=== PATIENT | male | born 1995 ===

== ENCOUNTER 2017-09-05 17:45 | Emergency (ER) | payer MEDICAID, OTHER ==
[2017-09-05 19:52] VITALS: BP 160/90; PULSE 96; RESP 18; TEMP 98.7; O2SAT 99
--- NOTE | 2017-09-05 20:26 | C.PDOC ---
History Of Present Illness 22 year old male presents to the ED for evaluation of cough which began 2 days ago. Patient had sick contact with mother, who has been experiencing similar symptoms. Patient denies fever, chills, vomiting, diarrhea. Time Seen by Provider: 09/05/17 19:44 Chief Complaint (Nursing): Cough, Cold, Congestion History Per: Patient History/Exam Limitations: no limitations Onset/Duration Of Symptoms: Days Current Symptoms Are (Timing): Still Present Location Of Pain: None Sick Contacts (Context): Family Member(s) (mother) Associated Symptoms: Cough. denies: Fever, Chills, Vomiting, Diarrhea Additional History Per: Patient, Family Past Medical History Reviewed: Historical Data, Nursing Documentation, Vital Signs Vital Signs: Last Vital Signs Temp 98.7 F 09/05/17 19:49 Pulse 96 H 09/05/17 19:49 Resp 18 09/05/17 19:49 BP 160/90 H 09/05/17 19:49 Pulse Ox 99 09/05/17 21:51 - Medical History PMH: HTN, Seizures Denies: Diabetes, Hepatitis, HIV, Sexually Transmitted Disease Surgical History: No Surg Hx - [facility] Procedures DEBRIDEMENT OF NAIL, NAIL BED OR NAIL FOLD (07/05/14) FAMILY THERAPY (07/05/14) INDIVID PSYCHOTHERAP NEC (07/05/14) INFLUENZA VACCINATION (07/05/14) MAGNETIC RESONANCE IMAGING OF BRAIN AND BRAIN STEM (05/17/14) OTHER GROUP THERAPY (07/05/14) PSYCHIA INTERV/EVAL NEC (07/01/14) Family History: States: Unknown Family Hx - Social History Hx Tobacco Use: No Hx Alcohol Use: No Hx Substance Use: No - Immunization History Hx Tetanus Toxoid Vaccination: No Hx Influenza Vaccination: No Hx Pneumococcal Vaccination: Yes Review Of Systems Constitutional: Negative for: Fever, Chills Respiratory: Positive for: Cough Gastrointestinal: Negative for: Vomiting, Abdominal Pain, Diarrhea Physical Exam - Physical Exam Appears: Non-toxic, No Acute Distress Skin: Normal Color, Warm, Dry, No Rash Head: Atraumatic, Normacephalic Eye(s): bilateral: Normal Inspection, PERRL, EOMI Ear(s): Bilateral: Normal Nose: Normal, No Discharge Oral Mucosa: Moist Throat: Normal, No Erythema, No Exudate Neck: Normal ROM, Supple Chest: Symmetrical, No Deformity, No Tenderness Cardiovascular: Rhythm Regular, No Friction Rub, No Murmur Respiratory: Normal Breath Sounds, No Rales, No Rhonchi, No Wheezing Gastrointestinal/Abdominal: Bowel Sounds (active), Soft, No Tenderness Back: Normal Inspection, No CVA Tenderness Extremity: Normal ROM, Capillary Refill (less than 2 seconds ) Neurological/Psych: Oriented x3, Normal Speech, Normal Cognition, Normal Motor, Normal Sensation Gait: Steady ED Course And Treatment O2 Sat by Pulse Oximetry: 99 (on RA) Pulse Ox Interpretation: Normal Medical Decision Making Medical Decision Making: Motrin PO administered. Disposition - Disposition Referrals: Husam Gray MD [Non-Staff] - Disposition: HOME/ ROUTINE Disposition Time: 20:24 Condition: GOOD Additional Instructions: Follow up with the medical doctor within 1-2 days. Return if worsened. Prescriptions: Ibuprofen [Motrin] 600 mg PO TID #21 tab Loratadine [Claritin] 10 mg PO DAILY #10 tab Instructions: Upper Respiratory Infection (ED) Forms: [employer] (Upper Sor[place]), School Excuse - Clinical Impression Clinical Impression: Upper respiratory infection - PA / [employer] / Resident Statement MD/DO has reviewed & agrees with the documentation as recorded. - Scribe Statement The provider has reviewed the documentation as recorded by the Scribe (Gaby Patel) All medical record entries made by the Scribe were at my direction and personally dictated by me. I have reviewed the chart and agree that the record accurately reflects my personal performance of the history, physical exam, medical decision making, and the department course for this patient. I have also personally directed, reviewed, and agree with the discharge instructions and disposition.
== END 2017-09-05 20:30 | disposition home or self-care (01) ==
LOC: C.ER 17:45
DX: J06.9 Acute upper respiratory infection, unspecified (principal)